=== PATIENT | female | born 1990 | race Hispanic/Latino ===

== ENCOUNTER 2024-02-02 18:21 | Emergency (ER) | payer MEDICAID ==
[~2024-02-02] VITALS: Ht 162.6 cm; Wt 104.3 kg
[2024-02-02 18:50] VITALS: TEMP 102.2
[2024-02-02] MEDS: acetaMINOPHEN 500 MG TABLET PO ONE (18:50)
[2024-02-02] MEDS: 0.9%NACL 1000ML 1,000 ML IV ONE (18:50)
[2024-02-02 19:13] LABS: BASOPHILS # (AUTO) 0.04 K/uL (0.00-0.20); BASOPHILS % (AUTO) 0.5 % (0.0-5.0); EOSINOPHILS # (AUTO) 0.21 K/uL (0.00-0.70); EOSINOPHILS % (AUTO) 2.6 % (0.0-8.0); IMMATURE GRANULOCYTE ABSOLUTE 0.05 K/uL (0-1); LYMPHOCYTES # (AUTO) 1.5 K/uL (1.0-4.8); LYMPHOCYTES % (AUTO) 18.3 % (21.0-51.0); MEAN CORPUSCULAR HEMOGLOBIN 30.1 pg (27.0-33.0); MEAN CORPUSCULAR HGB CONC 35.1 g/dL (32.0-36.0); MEAN CORPUSCULAR VOLUME 85.7 fL (79-99); MONOCYTES # (AUTO) 0.6 K/uL (0.1-1.0); NEUTROPHILS # (AUTO) 5.6 K/uL (1.8-7.7); PLATELET COUNT (AUTO) 261 K/uL (130-400); RED BLOOD CELL COUNT(AUTO) 5.25 MIL/uL (4.00-5.50); RED CELL DISTRIBUTION WIDTH 12.2 % (11.0-15.5)
[2024-02-02 19:19] LABS: RAPID GROUP A STREP negative (NEGATIVE)
[2024-02-02 19:23] LABS: CREATININE 0.9 mg/dL (0.5-1.0); POTASSIUM 3.9 mmol/L (3.5-5.1)
[2024-02-02 19:25] LABS: INFLUENZA TYPE A Negative For Type A (NEGATIVE); INFLUENZA TYPE B Negative For Type B (NEGATIVE)
[2024-02-02 19:26] LABS: COVID19 (SARS ANTIGEN RAPID) PRESUMPTIVE NEGATIVE (NEGATIVE)
[2024-02-02 20:53] LABS: APPEARANCE,URINE CLEAR (CLEAR); BILIRUBIN,URINE NEGATIVE (NEGATIVE); COLOR,URINE COLORLESS (YELLOW); GLUCOSE, URINE (UA) 50 mg/dL (NEGATIVE); KETONES,URINE NEGATIVE (NEGATIVE); LEUKOCYTE ESTERASE ,URINE NEGATIVE Leu/uL (NEGATIVE); NITRATE,URINE NEGATIVE (NEGATIVE); OCCULT BLOOD,URINE NEGATIVE (NEGATIVE); PH,URINE 6.5 (5.0-8.0); PROTEIN,URINE NEGATIVE (NEGATIVE); UROBILINOGEN,URINE 0.2 mg/dL (0.2-1.0)
[2024-02-02 20:54] LABS: ADD UA MICROSCOPIC YES
[2024-02-02 20:57] LABS: HCG,QUALITATIVE URINE NEGATIVE (NEGATIVE)
[2024-02-02 21:00] LABS: SQUAMOUS EPITHELIAL CELL,UR RARE /HPF (0-2); WBC,URINE 0-1 /HPF (0-1)
[2024-02-02] MEDS ORDERED: METF-446 PO (21:15)
[2024-02-02] MEDS ORDERED: ENAL-87 PO (21:15)
[2024-02-02 21:25] VITALS: BP 132/85; PULSE 85; RESP 18; TEMP 98.5; O2SAT 99
== END 2024-02-02 21:27 | disposition home or self-care (01) ==
LOC: EDH 18:21
DX: E11.65 Type 2 diabetes mellitus with hyperglycemia (principal); I10 Essential (primary) hypertension; E86.0 Dehydration; E66.9 Obesity, unspecified; R07.89 Other chest pain; E87.1 Hypo-osmolality and hyponatremia; Z79.899 Other long term (current) drug therapy; Z90.49 Acquired absence of other specified parts of digestive tract; Z98.890 Other specified postprocedural states; Z79.84 Long term (current) use of oral hypoglycemic drugs
CPT/HCPCS: 99285; 96360; 71045; 87426; 84484; 80048; 85025; 87880; 87804 ×2; 81001; 81025; 36415; 93005; J7030